=== PATIENT | male | born 1945 | race Caucasian/White ===

== ENCOUNTER 2016-10-23 05:37 | Emergency (ER) | payer MEDICARE ==
[~2016-10-23 05:37] MED LIST: AMIODARONE PO; ASPIRIN81 M1 PO; CARVEDILOL6.25 MG PO; CIPRO750 MG PO; COUMADIN2.5 MG PO; COUMADIN5 MG PO; FUROSEMIDE40 MG PO; KEFLEX500 M1 PO; LIPITOR20 MG PO; LISINOPRIL10 MG PO; MEXITIL150 MG PO; STARLIX PO; VITAMIN D250000 UNIT PO
== END 2016-10-23 06:20 | disposition home or self-care (01) ==
LOC: CED 05:37
DX: S61.411A Laceration without foreign body of right hand, initial encounter (principal); I11.0 Hypertensive heart disease with heart failure; I50.9 Heart failure, unspecified; E11.9 Type 2 diabetes mellitus without complications; Z23 Encounter for immunization; Z79.01 Long term (current) use of anticoagulants; Z91.041 Radiographic dye allergy status; W45.8XXA Other foreign body or object entering through skin, initial encounter; Y92.89 Other specified places as the place of occurrence of the external cause
CPT/HCPCS: 29280; 90471; 90715; 99283

== ENCOUNTER 2016-10-23 10:07 | Emergency (ER) | payer MEDICARE | END 2016-10-23 10:18 | disposition left against medical advice (07) | LOC: CFTX 10:07 → CED 10:07 → CFTX 10:10 → CED 10:18 | DX: Z53.21 Procedure and treatment not carried out due to patient leaving prior to being seen by health care provider (principal) ==

== ENCOUNTER 2016-10-25 08:07 | Emergency (ER) | payer MEDICARE | END 2016-10-25 09:05 | disposition home or self-care (01) | LOC: CED 08:07 | DX: S60.511A Abrasion of right hand, initial encounter (principal); I10 Essential (primary) hypertension; I25.2 Old myocardial infarction; Z95.1 Presence of aortocoronary bypass graft; Z91.041 Radiographic dye allergy status; X58.XXXA Exposure to other specified factors, initial encounter; Y92.9 Unspecified place or not applicable | CPT/HCPCS: 99282; 99283 ==

== ENCOUNTER 2017-02-07 08:10 | Emergency (ER) | payer OTHER, MEDICARE ==
[~2017-02-07] VITALS: Ht 167.6 cm; Wt 78.5 kg
== END 2017-02-07 08:48 | disposition home or self-care (01) ==
LOC: CED 08:10
DX: S51.811A Laceration without foreign body of right forearm, initial encounter (principal); I11.9 Hypertensive heart disease without heart failure; E11.9 Type 2 diabetes mellitus without complications; Z79.01 Long term (current) use of anticoagulants; Z91.041 Radiographic dye allergy status; Z88.8 Allergy status to other drugs, medicaments and biological substances; X58.XXXA Exposure to other specified factors, initial encounter; Y92.009 Unspecified place in unspecified non-institutional (private) residence as the place of occurrence of the external cause
CPT/HCPCS: 99283

== ENCOUNTER 2017-02-18 07:06 | Emergency (ER) | payer MEDICARE ==
[~2017-02-18] VITALS: Ht 167.6 cm; Wt 80.7 kg
[2017-02-18 08:16] LABS: INR 3.1; PARTIAL THROMBOPLASTIN TIME 42.8 SECONDS (23.5-31.3); PROTHROMBIN TIME (PATIENT) 33.8 SECONDS (10.0-11.7)
== END 2017-02-18 08:54 | disposition home or self-care (01) ==
LOC: CED 07:06
PROVIDERS: Physician Assistant Medical
DX: S41.111A Laceration without foreign body of right upper arm, initial encounter (principal); I48.91 Unspecified atrial fibrillation; E11.9 Type 2 diabetes mellitus without complications; E03.9 Hypothyroidism, unspecified; Z95.1 Presence of aortocoronary bypass graft; Z88.8 Allergy status to other drugs, medicaments and biological substances; I11.0 Hypertensive heart disease with heart failure; I50.9 Heart failure, unspecified; X58.XXXA Exposure to other specified factors, initial encounter
CPT/HCPCS: 36415; 85610; 85730; 99283